=== PATIENT | male | born 1955 | race Caucasian/White ===

== ENCOUNTER 2018-07-19 08:52 | Observation (INO) | payer BC ==
--- NOTE | 2018-07-19 09:33 | ED ---
HPI Chest Pain - HPI Summary HPI Summary: This patient is a 62 year old M presenting to [facility] accompanied by a woman with a chief complaint of intermittent midsternal chest tightness since 3 days ago. The patient rates the pain 2/10 in severity. Patient reports epigastric discomfort and right sided facial droop. Patient denies abd pain, fevers, chills , N/V, or SOB. The patient reports that he has chronic GI upset. PMHX HTN, diabetes. SHX occasional EtOH. No SHx tobacco use or recreational drug use. Vitals in the room: HR 66 bpm, BP 153/82. - History of Current Complaint Chief Complaint: EDNeurologicalDeficit Time Seen by Provider: 07/19/18 08:58 Hx Obtained From: Patient Onset/Duration: Started Days Ago - 3 Timing: Intermittent Current Severity: Mild Pain Intensity: 2 Pain Scale Used: 0-10 Numeric Chest Pain Location: Mid Sternal Character: Tightness Associated Signs and Symptoms: Positive: Chest Pain. Negative: Shortness of Breath, Fever, Chills, Nausea, Abdominal Pain, Vomiting - Allergy/Home Medications Allergies/Adverse Reactions: Allergies Allergy/AdvReac Type Severity Reaction Status Date / Time No Known Allergies Allergy Verified 04/23/12 10:05 Home Medications: Home Medications Amlodipine Besylate [Amlodipine 2.5 mg tab] 1 tab PO DAILY 07/19/18 [History Confirmed 07/19/18] Naproxen Sodium [Aleve] 220 mg PO DAILY 07/19/18 [History Confirmed 07/19/18] PMH/Surg Hx/FS Hx/Imm Hx Endocrine/Hematology History: Reports: Hx Diabetes - TYPE 2 Denies: Hx Sickle Cell Disease Cardiovascular History: Reports: Hx Hypertension Denies: Hx Pacemaker/ICD, Other Cardiovascular Problems/Disorders Respiratory History: Denies: Other Respiratory Problems/Disorders GI History: Denies: Other GI Disorders History: Reports: Hx Kidney Stones - 2 YEARS AGO Denies: Hx Dialysis, Hx Renal Disease Musculoskeletal History: Reports: Hx Arthritis - ARTHRITIS IN KNEES, Hx Back Problems Denies: Other Musculoskeletal History Sensory History: Denies: Hx Contacts or Glasses, Hx Hearing Aid Opthamlomology History: Denies: Hx Contacts or Glasses Neurological History: Denies: Other Neuro Impairments/Disorders Psychiatric History: Denies: Hx Panic Disorder - Surgical History Surgery Procedure, Year, and Place: tonsillectomy as a child; appendectomy as a child; disk surgery between L3-4 age 14 , right knee arthroscopy 02-07-12 Hx Anesthesia Reactions: No Infectious Disease History: No Infectious Disease History: Denies: Hx Clostridium Difficile, Hx Hepatitis, Hx Human Immunodeficiency Virus (HIV), Hx Shingles, Hx Tuberculosis, Traveled Outside the [place] in Last 30 Days - Family History Known Family History: Positive: Hypertension - Social History Alcohol Use: Daily Substance Use Type: Reports: None Smoking Status (MU): Former Smoker Review of Systems Negative: Fever, Chills Positive: Chest Pain Negative: Shortness Of Breath Positive: Other - GI discomfort. Negative: Abdominal Pain, Vomiting, Nausea Neurological: Other - right sided facial droop All Other Systems Reviewed And Are Negative: Yes Physical Exam - Summary Physical Exam Summary: GENERAL: Patient is a well-developed and nourished male who is lying comfortable in the stretcher. Patient is not in any acute respiratory distress. HEAD AND FACE: Normocephalic EYES: PERRLA, EOMI x 2. EARS: Hearing grossly intact. MOUTH: Oropharynx within normal limits. NECK: Supple, trachea is midline, no adenopathy, no JVD, no carotid bruit. CHEST: Symmetric, no tenderness at palpation LUNGS: Clear to auscultation bilaterally. No wheezing or crackles. CVS: Regular rate and rhythm, S1 and S2 present, no murmurs or gallops appreciated. ABDOMEN: Soft, non-tender. Bowel sounds are normal. No abdominal abnormal pulsations. EXTREMITIES: Full ROM in all major joints, no edema, no cyanosis or clubbing. NEURO: Alert and oriented x 3. No acute neurological deficits. Speech is normal and follows commands. Cranial nerves intact, no dysmetria. SKIN: Dry and warm GCS: 15 Triage Information Reviewed: Yes Vital Signs On Initial Exam: Initial Vitals Temp Pulse Resp BP Pulse Ox 98.6 F 67 16 156/82 98 07/19/18 08:58 07/19/18 08:58 07/19/18 08:58 07/19/18 08:58 07/19/18 08:58 Vital Signs Reviewed: Yes Diagnostics - Vital Signs Vital Signs Temp Pulse Resp BP Pulse Ox 07/19/18 09:07 22 07/19/18 08:58 98.6 F 67 16 156/82 98 - Laboratory Result Diagrams: 07/19/18 09:49 07/19/18 09:49 Lab Statement: Any lab studies that have been ordered have been reviewed, and results considered in the medical decision making process. - Radiology CXR Radiology Interpretation Completed By: Radiologist Summary of Radiographic Findings: NO EVIDENCE FOR ACUTE DISEASE. ED physician has reviewed this report - CT Brain CT Interpretation Completed By: Radiologist Summary of CT Findings: NO EVIDENCE FOR ACUTE INTRACRANIAL ABNORMALITY. ED physician has reviewed this report - EKG 08:57 Cardiac Rate: NL - 65 bpm EKG Rhythm: Sinus Rhythm Summary of EKG Findings: No ischemic changes Chest Pain Course/Dx - Course Course Of Treatment: This patient is a 62 year old M presenting to [facility] accompanied by a woman with a chief complaint of intermittent midsternal chest tightness since 3 days ago. The patient rates the pain 2/10 in severity. Patient reports epigastric discomfort and right sided facial droop. Patient denies abd pain, fevers, chills, N/V, or SOB. An EKG reveals 65 bpm, no ischemic changes. CXR reveals, per radiologist, NO EVIDENCE FOR ACUTE DISEASE. Brain CT reveals, per radiologist, NO EVIDENCE FOR ACUTE INTRACRANIAL ABNORMALITY. ED physician has reviewed this radiology report. Bloodwork/UA obtained. We discussed patient care with Dr. Mandujano, hospitalist, and they recommended admission. - Diagnoses Provider Diagnoses: Chest pain - Provider Notifications Discussed Care Of Patient With: Ryan Mandujano Time Discussed With Above Provider: 11:20 Instructed by Provider To: Admit As Inpatient Discharge - Sign-Out/Discharge Documenting (check all that apply): Patient Departure - admission Patient Received Moderate/Deep Sedation with Procedure: No - Discharge Plan Condition: Fair Disposition: ADMITTED TO [facility] - Billing Disposition and Condition Condition: FAIR Disposition: Admitted to [facility] - Attestation Statements Document Initiated by Scribe: Yes Documenting Scribe: Jme Carr Provider For Whom Scribe is Documenting (Include Credential): Suzanne Dong MD Scribe Attestation: Jem Woodward scribed for Suzanne Dong MD on 07/19/18 at 1514. Scribe Documentation Reviewed: Yes Provider Attestation: The documentation as recorded by the Jem jasso accurately reflects the service I personally performed and the decisions made by me, Suzanne Dong MD Status of Scribe Document: Viewed
[2018-07-19 09:57] LABS: ABS Basophils 0 10^3/ul (0-0.2); ABS Eosinophils 0.2 10^3/ul (0-0.6); ABS Lymphocytes 1.3 10^3/ul (1.0-4.8); ABS Monocytes 0.5 10^3/ul (0-0.8); ABS Neutrophils 2.2 10^3/ul (1.5-7.7); ABS Nucleated RBC 0 10^3/ul; Eosinophil % 3.8 %; Hematocrit 45 % (36-46); Hemoglobin 15.2 g/dL (14.0-18.0); Lymphocyte % 30.7 %; Mean Corpuscular HGB Conc 34 g/dL (31-36); Mean Corpuscular Hemoglobin 31 pg (27-31); Mean Corpuscular Volume 92 fL (80-94); Mean Platelet Volume 7.2 fL (7.4-10.4); Nucleated Red Blood Cells % 0; Platelet Count 192 10^3/uL (150-450); Red Blood Count 4.91 10^6 /uL (4.18-5.48); Red Cell Distribution Width 15 % (10.5-15); White Blood Count 4.2 10^3/uL (3.5-10.8)
[2018-07-19 10:09] LABS: Activated Partial Thrombo Time 30.5 seconds (26.0-36.3); INR 0.91 (0.77-1.02)
[2018-07-19 10:17] LABS: Albumin/Globulin Ratio 1.4 (1-3); BUN/Creatinine Ratio 22.5 (8-20); Calcium 9.6 mg/dL (8.6-10.3); EGFR African American 118.1 (>60); EGFR Non-African American 97.6 (>60); Globulin 2.8 g/dL (2-4); Magnesium 1.9 mg/dL (1.9-2.7); Potassium 4.6 mmol/L (3.5-5.0); Total Bilirubin 0.4 mg/dL (0.2-1.0); Total Protein 6.8 g/dL (6.4-8.9)
[2018-07-19 10:21] LABS: CKMB ng/mL 3.3 ng/mL (0.6-6.3)
[2018-07-19] MEDS ORDERED: Clopidogrel TAB* 75 MG PO ONE (12:20)
[2018-07-19] MEDS ORDERED: Dextrose 50% Syringe 50 ML* 25 GM/50 ML SYRINGE IV PUSH PRN (12:21)
[2018-07-19] MEDS ORDERED: Iodixanol* (CONTRAST) 320 MG/ML 100 ML SDV IV ONE (12:27)
[2018-07-19] MEDS ORDERED: Lidocaine 2% VISCOUS* 15 ML UDC PO ONE (12:44)
[2018-07-19 12:57] LABS: Urine Appearance Cloudy; Urine Bilirubin Negative (Negative); Urine Blood Negative (Negative); Urine Color Yellow; Urine Glucose Negative (Negative); Urine Ketones Negative (Negative); Urine Nitrite Negative (Negative); Urine Protein Negative (Negative); Urine Specific Gravity 1.016 (1.010-1.030); Urine Urobilinogen Negative (Negative)
[2018-07-19] MEDS: Heparin VIAL(*) 5000 UNITS/ML VIAL (FIVE THOUSAND) SUBCUT SCH ×2 (15:10→20:18)
--- NOTE | 2018-07-19 16:41 | CONS ---
NEUROLOGY CONSULTATION: DATE OF CONSULT: 07/19/18 LOCATION: He is an inpatient in room 445. REFERRING PROVIDER: Sherley Laureano NP. CHIEF COMPLAINT: Intermittent right facial numbness or weakness. 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 He also reports that for about 1 week he has had intermittent sense of something wrong with the right corner of his mouth. At times, it feels like it is drooping or perhaps numb, but he is not really sure how to describe it. There is no pain and it lasts anywhere from 10 seconds to at most a minute. He has looked in the mirror and he has not seen any asymmetries. It does not affect his speech. His has not noticed any facial asymmetries. He has not noticed any numbness or weakness in his limbs other than chronic right footdrop attributed to prior lumbar disk disease and subsequent surgeries. He does have a history of diabetes, but he denies numbness in his hands or feet otherwise. He has not noticed any difficulty walking. There is no prior history of transient ischemic attack or stroke. He has had a couple of concussive head injuries, but none requiring medical intervention. There is no history of epilepsy. PAST MEDICAL HISTORY: Notable for adult-onset diabetes, prior lumbar surgeries with chronic right footdrop, septic arthritis of the right knee and subsequent surgeries, tonsillectomy. MEDICATIONS: At home consist of: 1. Aspirin 81 mg p.o. daily. 2. Amlodipine 2.5 mg p.o. daily. 3. Metformin 1000 mg p.o. daily. 4. Glipizide 5 mg p.o. daily. 5. Naproxen 220 mg p.o. daily. Medications here in the hospital also include: 1. Sliding scale insulin. 2. Plavix 75 mg was started today. 3. Also Protonix 40 mg p.o. daily. ALLERGIES: He does not have any drug allergies. SOCIAL HISTORY: He is a nonsmoker. According to computer records, he drinks a couple of beers a day. REVIEW OF SYSTEMS: Negative for headache, jaw problems, dental issues, difficulty with speech, difficulty with swallowing, recent shortness of breath, recent fevers or infections. He banged the apex of his head on a frame to his plough earlier this winter and lacerated it. He did not lose consciousness. He has chronic back pain. There is no history of heart disease. PHYSICAL EXAM: He is obese. Temperature 97.8, blood pressure 146/76, heart rates in the 60s and regular. Respiratory rate is 16 and oxygen saturation is 99% on room air. Neck is supple. Heart tones are normal. There are no cervical bruits. Oral mucosa is moist and atraumatic. Lungs are clear bilaterally. Neurological Exam: Pupils react equally from 3.5 down to 2 mm. Eye movements are normal. Funduscopic exam is normal bilaterally. Visual sepulveda are full to confrontation. There is no ptosis. Upper and lower facial musculature is intact and symmetric. Palate and tongue appear normal and palate rises symmetrically. Tongue protrudes in the midline. Speech is clear without dysarthria. Facial sensation to pin is variable without any fixed asymmetries or deficits. Sensation in the limbs is intact to light touch, vibration, and pin discrimination symmetrically in upper and lower extremities. On motor exam, there is atrophy and fasciculations in the left first dorsal interosseous. He has grade 4 to 4+ weakness in that muscle and otherwise normal strength in the upper extremities proximally and distally. In the lower extremities, he has normal proximal strength and distal strength in the left lower extremity and normal proximal strength in the right lower extremity. He has lessened antigravity right ankle dorsiflexor weakness. Reflexes are trace diffusely. Plantar is mute on the right and flexor on the left. Pcym-zv-setr maneuver is normal bilaterally. There is no rest, sustention , or action tremor. Jwzsvq-eu-butx maneuver is normal bilaterally. Finger taps are normal bilaterally. Gait and station are normal. There is no ataxia. He is alert and oriented and a good detailed historian. Memory is intact and language is fluent. He has adequate attention, concentration, and fund of knowledge. DIAGNOSTIC STUDIES/LAB DATA: Laboratory data includes a CT scan of the brain, which I reviewed the images and the interpretation. Interpretation is a normal noncontrast brain CT. CT angiogram of the neck and brain is reviewed as well. There is some calcification in the carotid bulbs bilaterally, but no significant intracranial or extracranial stenosis. I reviewed the images as well as the report. EKG revealed sinus rhythm and no abnormalities. Other laboratory data is notable for a normal chemistry profile other than a glucose of 111 and the SSD-do-nhtaukdocf ratio is borderline elevated at 22.5. Troponin is 0 and CK-MB fraction is 3.3, within normal limits. Liver enzymes are normal. Urinalysis today is unremarkable. Urine glucose is negative. IMPRESSION AND PLAN: Impression is that of some subjective sensory symptoms on the right side of the face, which he says also occurred at least once in the left side. Transient ischemic attack is certainly in the differential, but I would not expect it to alternate from [id number]. Currently, he has a normal neurological exam other than chronic findings consistent with an old right L5 radiculopathy and probable ulnar neuropathy at the left elbow. An MRI scan of the brain has been ordered. I spoke with Sherley Laureano NP, earlier and recommended adding Plavix to his aspirin which has been done. Fasting lipid profile is pending for tomorrow. He is also being evaluated for possible coronary artery disease with his chest pressure presentation. I will continue to follow him along with you. [id number]/[facility] #: [id number] JANET
[2018-07-19] MEDS: Insulin LISPRO* 1 UNITS UNIT SUBCUT SCH ×2 (17:17→19:56)
--- NOTE | 2018-07-19 17:22 | HP ---
HISTORY AND PHYSICAL: DATE OF ADMISSION: 07/19/18 PROVIDER: Archie Stokes NP ATTENDING PHYSICIAN: Dr. Mandujano * (report dictated by Archie Stokes NP) PRIMARY CARE PROVIDER: Dr. Sreekanth Siu, [facility]. CHIEF COMPLAINT: Right-sided facial droop, numbness, and chest discomfort. HISTORY OF PRESENT ILLNESS: Mr. Joyner is a 62-year-old male with a past medical history of obesity, rvp-hneyjdc-vjbevkeak type 2 diabetes, GERD, who presents to the emergency department today with report of 4-days of not feeling well and concerned for experiencing numbness at the right side of his mouth and which he thought he was having right-sided facial droop, which he states that it feels like this, even though on assessment, there is no facial droop. He described that as "twinges" of strange sensation and possibly numbness. He reports this has happened every day since , intermittently 3 to 4 times a day, mostly on the right side, reporting it happened just a few times on the left side in the last couple of days. He denies any other neurological deficit and has ever experienced before in the past. No history of TIA or stroke in the past. As well, he reports he noted some light chest tightness on as well as Friday and yesterday. He reports today he noted he had discomfort from above his belly button to his mid sternum and reported that it was tightness, not pain. He states it feels like a band of tightness. He also reports yesterday morning he noted he had significant acid reflux, which he has intermittently and is baseline. He reports that a few months ago, he was put on "some medication" for acid reflux for 2 weeks trial and since he does not have reflux on a regular basis, he was not sure if it helped or not and stop taking the mediation. 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 He does report that these episode of right corner of mouth numbness/twinges and sensation of right facial droop as well as chest discomfort did happen with excretion. The patient denies ever having CTA or ultrasound of carotids or an MRI as well as has no history of cardiac stress test. No history of FL. He takes Aleve daily for his back pain. No history of gastric ulcers in the past. Also takes daily aspirin. PAST MEDICAL HISTORY: 1. Xdv-hldtxks-iapdjknug type 2 diabetes. 2. GERD. 3. Obesity. 4. Hypertension. 5. History of bacteremia in 2012 and 2013 from a right septic knee. PAST SURGICAL HISTORY: Appendectomy, tonsillectomy, disk surgery at age 14. HOME MEDICATIONS: 1. Aleve 220 mg p.o. daily. 2. Amlodipine 2.5 mg p.o. daily. 3. Metformin 1000 mg p.o. daily. 4. Glipizide 20 mg p.o. daily. ALLERGIES: No known allergies. FAMILY HISTORY: His father has a history of diabetes. His mother has a history of coronary artery disease. He has 2 sisters and a brother with coronary artery disease. 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 He lives at home with his who is his healthcare proxy. He reports he drinks 2 to 3 beers 1 to 2 times a week. REVIEW OF SYSTEMS: A 14-point review of systems was performed. All the pertinent positives and negatives are mentioned in the history of present illness. Otherwise are negative. PHYSICAL EXAMINATION GENERAL APPEARANCE: A 62-year-old male, alert and oriented x3, sitting in the emergency department stretcher, in no acute distress. VITAL SIGNS: Temperature 98.6, heart rate 61, respirations 19, O2 sat 97% on room air, blood pressure 139/83. HEENT: Head is normocephalic, atraumatic. Pupils equal and reactive to light. Oropharynx is clear. Moist mucous membranes. Good dentition. NECK: Supple. No JVD noted. LUNGS: Clear to auscultation bilaterally. Good aeration throughout. CARDIAC: S1, S2, regular rate and rhythm. No murmurs, rubs, or gallops appreciated. ABDOMEN: Slightly obese, soft, nontender, nondistended. Normal bowel sounds throughout. EXTREMITIES: No clubbing, cyanosis, or edema. NEUROLOGIC: Alert and oriented x3. Cranial nerves II through XII are grossly intact. No focal deficits noted. LABORATORY DATA/DIAGNOSTIC STUDIES: Sodium 137, potassium 4.6, chloride 106, carbon dioxide 27, anion gap 4, BUN 18, creatinine 0.80, glucose 111, lactic acid 1.7, calcium 9.6, magnesium 1.9, total bilirubin 0.40, AST 17, ALT 20, alkaline phosphatase 56. CK-MB 3.3. Troponin 0.00, BNP 15, total protein 6.8, albumin is 4.0, INR 0.91. WBC 4.2, RBC 4.91, HGB 15.2, HCT 45, MCV 92, MCH 31, MCHC 34, platelet count 192. Brain CT, impression: No evidence for acute intracranial pathology. EKG, sinus rhythm with a rate of 65 with no acute ischemic changes noted and no changes noted form prior EKG in 2011. Chest x-ray, impression: "No evidence for acute disease." ASSESSMENT AND PLAN: Mr. Joyner is a 62-year-old male with a past medical history of obesity, cuo-qgahesr-tavpblqdo type 2 diabetes, gastroesophageal reflux disease, and hypertension. He presents to the emergency department today with report of 4 days of not feeling well with intermittent right-sided mouth numbness/twinges and which he thought was right-sided facial droop and report of chest tightness, who will be admitted to the hospitalist service for transient ischemic attack workup. We will also rule out acute coronary syndrome. 1. Possible Transient ischemic attack. The patient's CT of the brain was negative. He will be admitted to the Telemetry Unit and will undergo a CTA of the head and neck as well as an MRI of the brain without contrast. I spoke with neurologist, Dr. Flowers, who will see the patient in consultation. He recommended the patient be given Plavix 75 mg x1 now and started on this daily. He will continue on his aspirin. Neuro checks q.4 hours. Fasting lipid profile in the morning. Transthoracic echocardiogram with a bubble study. The patient has no neurological deficits on my examination. It is hard for him to describe his symptoms of right corner of his mouth twinges and numbness that travel down from corner of the mouth to the base of chin as well as he does report he has experienced this few times on the left side, mostly on the right. 2. Rule out acute coronary syndrome. EKG shows no acute changes. His initial troponin is 0.00. I suspect this is secondary to gastroesophageal reflux disease, however, he is at high risk due to his past medical history. However, his BRAEDEN score is 2 and his HEART score is 3. If he rules out with his troponins and have EKG changes, he could have an outpatient stress test if he rules out for ACS. Trend troponins q.3 hours. 3. Gastroesophageal reflux disease. The patient reports intermittent reflux at his baseline. I am going to give him a dose of GI cocktail x1 to see if this helps with his symptoms. He does take aspirin and Aleve on a daily basis and could have some gastritis. I did discuss with the patient that he should see a caramel cutter helper and most likely go under an endoscopy. I will start the patient on a PPI. I do think he should be discharged home on this and followup with his primary. 4. Hypertension, appears to be well controlled. Continue amlodipine 2.5 mg p.o. daily. 5. Yjd-hsvcrtp-adojjrwvv type 2 diabetes. Hold oral diabetic medications. Start fingerstick blood glucose a.c. and h.s. with lispro sliding scale. We will add on hemoglobin A1c. 6. DVT prophylaxis: Heparin subcu. 7. Code status: Full code. 8. Hospital status: Observation. TIME SPENT: Approximately 60 minutes was spent on this admission and this case was discussed with attending physician, Dr. Dalton Mandujano as well as neurologist , Dr. Flowers. ARCHIE STOKES, [place] [id number]/[facility] #: [id number] JANET
[2018-07-19] MEDS ORDERED: Pantoprazole TAB * 40 MG TAB PO ONE (20:00)
[2018-07-20] MEDS: Heparin VIAL(*) 5000 UNITS/ML VIAL (FIVE THOUSAND) SUBCUT SCH ×2 (05:49→14:07)
[2018-07-20 06:23] LABS: ABS Basophils 0 10^3/ul (0-0.2); ABS Eosinophils 0.2 10^3/ul (0-0.6); ABS Lymphocytes 1.5 10^3/ul (1.0-4.8); ABS Monocytes 0.5 10^3/ul (0-0.8); ABS Neutrophils 2.3 10^3/ul (1.5-7.7); ABS Nucleated RBC 0 10^3/ul; Hematocrit 46 % (36-46); Hemoglobin 15.3 g/dL (14.0-18.0); Lymphocyte % 34.3 %; Mean Corpuscular HGB Conc 33 g/dL (31-36); Mean Corpuscular Hemoglobin 31 pg (27-31); Mean Corpuscular Volume 92 fL (80-94); Mean Platelet Volume 7.4 fL (7.4-10.4); Nucleated Red Blood Cells % 0.1; Platelet Count 188 10^3/uL (150-450); Red Blood Count 4.99 10^6 /uL (4.18-5.48); Red Cell Distribution Width 15 % (10.5-15); White Blood Count 4.5 10^3/uL (3.5-10.8)
[2018-07-20 06:38] LABS: BUN/Creatinine Ratio 19.5 (8-20); Calcium 9.3 mg/dL (8.6-10.3); EGFR African American 107.2 (>60); EGFR Non-African American 88.6 (>60); HDL Cholesterol 45.1 mg/dL; Potassium 4.4 mmol/L (3.5-5.0)
[2018-07-20] MEDS: Insulin LISPRO* 1 UNITS UNIT SUBCUT SCH ×2 (08:47→11:38)
[2018-07-20] MEDS ORDERED: Clopidogrel TAB* 75 MG PO SCH (09:00)
[2018-07-20] MEDS ORDERED: amLODIPine TAB* 5 MG PO SCH (09:00)
[2018-07-20] MEDS ORDERED: Pantoprazole TAB * 40 MG TAB PO SCH (09:00)
[2018-07-20 09:51] LABS: Folate 8.59 ng/mL (>3.99)
--- NOTE | 2018-07-20 15:36 | ECHO ---
Patient: ADRIÁN YOUSIF [facility] Rec#: [id number] : 1955 Date: 07/20/2018 Age: 62y Height: 178 cm / 70.1 in Weight: 120 kg / 264.5 lbs Sex: M BSA: 2.35 Room#: [facility] Admit Date#: 07/19/2018 Type: Inpatient Referring: BILLY STOKES Reading: Bryan Rod DO Elementary Educator: Yoselin Tsai RDCS,RDMS Transthoracic Echocardiogram Indication: TIA BP: 131/76 HR: 75 Rhythm: NSR Findings History: HTN, DM Technical Comments: The study quality is fair. Left Ventricle: The left ventricular chamber size is normal. Mild concentric left ventricular hypertrophy is observed. Global left ventricular wall motion and contractility are within normal limits. There is normal left ventricular systolic function. The estimated ejection fraction is 60-65%. There is an E to A reversal in the mitral valve flow pattern suggestive of diastolic dysfunction. Left Atrium: The left atrial chamber size is normal. Right Ventricle: The right ventricular chamber size and systolic function are within normal limits. Right Atrium: The right atrial cavity size is normal. The bubble study is negative. A patent foramen ovale is not demonstrated with color Doppler and agitated contrast. Aortic Valve: The aortic valve leaflets are mildly thickened. There is aortic annular calcification.that is mild There is a trace of aortic regurgitation. There is no evidence of aortic stenosis. Mitral Valve: The mitral valve leaflets appear normal. There is no evidence of mitral regurgitation. There is no evidence of mitral stenosis. Tricuspid Valve: The tricuspid valve leaflets are normal. There is trace tricuspid regurgitation. Unable to estimate the right ventricular systolic pressure. Pulmonic Valve: The pulmonic valve structure is not well visualized. There is no evidence of pulmonic regurgitation. Pericardium: There is no significant pericardial effusion. Aorta: There is mild dilatation of the ascending aorta. There is no dilatation of the aortic arch. There is mild dilatation of the aortic root. Pulmonary Artery: The main pulmonary artery is not well visualized. Venous: The inferior vena cava is not visualized. Contrast: Intravenous agitated saline contrast was used to assess intracardiac shunting. Images 67 and 68. Conclusions The left ventricular chamber size is normal. Mild concentric left ventricular hypertrophy is observed. Global left ventricular wall motion and contractility are within normal limits. There is normal left ventricular systolic function. The estimated ejection fraction is 60-65%. The left atrial chamber size is normal. The right ventricular chamber size and systolic function are within normal limits. The bubble study is negative. No significant valvular abnormalities noted There is mild dilatation of the aortic root. There is mild dilatation of the ascending aorta. None prior for comparison at time of interpretation Measurements Name Value Normal Range RVIDd (AP) 2D 3.5 cm (0.9 - 2.6) RAd ISD 4CH 5.2 cm (3.4 - 4.9) RA (A4C)W 2.8 cm (2.9 - 4.6) IVSd (2D) 1.3 cm (0.6 - 1) LVPWd (2D) 1.3 cm (0.6 - 1) LVIDd (2D) 4.5 cm (3.6 - 5.4) LVIDs (2D) 2.8 cm - LV FS (2D) 37 % (25 - 45) Aortic Annulus 2.5 cm (1.4 - 2.6) Ao root diameter (2D) 3.7 cm (2.1 - 3.5) Ascending Ao 3.8 cm (2.1 - 3.4) Aortic arch 3.3 cm (1.8 - 3.4) LA dimension (AP) 2D 3.6 cm (2.3 - 3.8) LAd ISD 4CH 4.7 cm (2.9 - 5.3) LA ISD 4CH W 4.1 cm (2.5 - 4.5) Name Value Normal Range LA ESV SP 4CH (A/L) 20.5 ml - Name Value Normal Range MV E-wave Vmax 0.6 m/sec - MV deceleration time 317 msec - MV A-wave Vmax 0.8 m/sec - MV E:A ratio 0.8 ratio - P. vein S-wave Vmax 0.7 m/sec - P. vein D-wave Vmax 0.6 m/sec - P. vein S:D Vmax ratio 1.2 ratio - P. vein A-wave duration 148 msec - LV septal e' Vmax 0.06 m/sec - LV lateral e' Vmax 0.06 m/sec - LV E:e' septal ratio 10 ratio - LV E:e' lateral ratio 10 ratio - Name Value Normal Range AV Vmax 1.4 m/sec - AV VTI 26 cm - AV peak gradient 8 mmHg - AV mean gradient 4 mmHg - LVOT Vmax 1.1 m/sec - LVOT VTI 23 cm - LVOT peak gradient 5 mmHg - LVOT mean gradient 3 mmHg - FLORENCE Vmax 0.6 m/sec - Name Value Normal Range PV Vmax 0.7 m/sec - PV peak gradient 2 mmHg -
[2018-07-20 15:50] VITALS: BP 138/76
--- NOTE | 2018-07-21 01:26 | DS ---
CC: Dr. Siu * DISCHARGE SUMMARY: DATE OF ADMISSION: 07/19/18 DATE OF DISCHARGE: 07/20/18 PROVIDER: DIANA Walker ATTENDING PHYSICIAN: Dr. Mandujano * (dictated by DIANA Walker). PRIMARY CARE PROVIDER: Dr. Siu. PRIMARY DIAGNOSES: 1. Chest pain, noncardiac. 2. Facial numbness, possible transient ischemic attack. SECONDARY DIAGNOSES: 1. Gastroesophageal reflux disease. 2. Type 2 diabetes mellitus. 3. Obesity. 4. Hypertension. STUDIES: Brain CT on 07/19/18, impression: "No evidence for acute intracranial abnormality." Chest x-ray on 07/19/18, impression: "No evidence for acute disease." Head CTA on 07/19/18, impression: 1. "No evidence for hemodynamically significant carotid stenosis. 2. No evidence for large vessel intracranial thrombus." Transthoracic echo on 07/19/18, conclusions: "The left ventricular chamber size is normal. Normal concentric left ventricular hypertrophy is observed. The global left ventricular wall motion and contractility are within normal limits. There is normal left ventricular systolic function. The estimated ejection fraction is 60% to 65%. The left atrial chamber size is normal. The left ventricular chamber size and systolic function are within normal limits. The bubble study is negative. No significant valvular abnormalities noted. There is mild dilation of the aortic root. There is mild dilation of the ascending aorta." Brain MRI on 07/20/18, impression: "Unremarkable MRI of the brain. No restricted diffusion to suggest infarct." PERTINENT LAB DATA: Triglycerides 171, cholesterol 163, LDL 84, HDL 45.1. Vitamin B12 of 221, folate 8.59, calcium 9.3. DISCHARGE MEDICATIONS: 1. Plavix 75 mg p.o. daily. 2. Pantoprazole 40 mg p.o. daily. Continued Home Medications: 1. Metformin 1000 mg p.o. daily. 2. Glipizide 5 mg p.o. daily. 3. Amlodipine 2.5 mg p.o. daily. HISTORY OF PRESENT ILLNESS/HOSPITAL COURSE: Sincere Joyner is a 62-year-old white male with past medical history significant for hypertension, diabetes mellitus type 2, GERD, who presented to the emergency department with right- sided facial numbness to the right of his mouth intermittently for 4 days. He does note that occasionally this has occurred on the left side. These periods of numbness only last for several seconds. He felt like there was some right- sided facial weakness, but when he looked in the mirror and asked his there was no facial droop reported. Additionally, he noticed some chest discomfort for several days leading up to presentation, between his midsternum and belly button. He frequently reported this was not a true pain. He did note that he has been on medication for acid reflux in the past, but was unsure of what. During his hospital course, he was seen by neurologist, Dr. Flowers, who suggested starting the patient on Plavix. He explained that this is not a very convincing TIA, but given his risk factors, cannot totally be ruled out. He has been ruled out for a stroke and there are no cardiogenic causes of a possible TIA. On date of discharge, the patient does mention that the first day that these symptoms started he was working on his dump truck in the garage, using multiple strong chemicals to clean asphalt off of the vehicle. He was doing so in a poorly ventilated area (his garage). On date of discharge, the patient's chest discomfort is resolved. He has not experienced facial numbness or weakness since admission. Additionally, denies nausea, vomiting, visual changes, headaches, chest palpitations. During his hospitalization, B12 and B9 deficiencies were ruled out in addition to hypocalcemia as the cause of the facial numbness. During his stay, for treatment of his likely GERD, pantoprazole was started inpatient. For treatment of his hypertension, his home amlodipine was continued. For treatment of his diabetes, his home oral medications were held and he was initiated on an insulin sliding scale. His hemoglobin A1c was found to be 6.1. REVIEW OF SYSTEMS: An 11-point review of systems was completed and all pertinent positives and negatives are in the HPI. All other systems are negative. PHYSICAL EXAMINATION: General: Obese white male, lying comfortably on hospital bed, appearing in no acute distress, at bedside. Head: Normocephalic, atraumatic. Eyes: PERRL, EOMI. Sclerae anicteric. ENT: Mucous membranes moist. Neck: Supple and without JVD. Cardio: Regular rate and rhythm without murmurs, rubs, or gallops. Respiratory: Lungs are clear to auscultation throughout. Chest: Expansion is symmetrical with respirations. Abdomen: Soft, nontender, nondistended. Extremities: Without clubbing or edema. Neuro: Alert and oriented x3. No focal neurological deficits. Sensation is intact and equal bilaterally throughout. DISCHARGE PLAN: Diet: The patient is to return to his diet of a carb- consistent diet for diabetes. Activity: The patient is return to his normal activity as tolerated. The patient is to begin taking Plavix daily and he can discuss with his PCP the period of time in which to continue this, although the recommendation is a minimum of 1 year. As previously mentioned, the suspicion for a true TIA is low and given this new information on date of discharge that the patient's inhalation of strong chemicals is an alternate explanation for the numbness in his face. The patient is chest pain-free at discharge and the cause of his chest pain is likely related to GERD. The patient has been prescribed pantoprazole. It is recommended that his symptoms be reevaluated in 8 weeks. If his symptoms are persistent, it is recommended that an outpatient endoscopy be performed. The patient was advised to discontinue taking Aleve in the setting of taking Plavix daily. For treatment of his hypertension, he is to continue his home medication of amlodipine. For treatment of his diabetes, he is to continue his metformin and glipizide. CONDITION ON DISCHARGE: Stable. TIME SPENT: Approximately 50 minutes was spent on this discharge; approximately half of the time was spent at the bedside. DIANA WALKER [id number]/[facility] #: [id number] [facility]ERYJuaquin
== END 2018-07-20 17:35 | disposition home or self-care (01) ==
LOC: ED 08:52 → MEDTELE 12:52
PROVIDERS: ADMIT Student in an Organized Health Care Education/Training Program; ATTEND Student in an Organized Health Care Education/Training Program
DX: R07.9 Chest pain, unspecified (principal); R20.0 Anesthesia of skin; K21.9 Gastro-esophageal reflux disease without esophagitis; E11.9 Type 2 diabetes mellitus without complications; E66.9 Obesity, unspecified; I10 Essential (primary) hypertension; Z87.891 Personal history of nicotine dependence; Z79.82 Long term (current) use of aspirin
CPT/HCPCS: 36415; 70450; 70496; 70498; 70551; 71045; 80048; 80053; 80061; 81003; 82553; 82607; 82746; 83036; 83605; 83735; 83880; 84484; 85025; 85379; 85610; 85730; 93005; 93306; 96372; 99284; A9270-GY; G0378; J1644; Q9967

== ENCOUNTER 2022-01-31 07:30 | Observation (INO) ==
[~2022-01-31 07:30] MED LIST: Buffered Lidocaine 1% SYRIN 1 ml INTRADERM ONE; Lactated Ringers 1000 ml BAG 1,000 ML IV SCH
[2022-01-31] MEDS ORDERED: Lidocaine 2% PF 5 ML VIAL ONE (08:15)
[2022-01-31] MEDS ORDERED: Ketamine HCL 50 mg/ml 10 ml VIAL (500 MG) ONE ×2 (08:15→09:48)
[2022-01-31] MEDS ORDERED: Propofol 10 MG/ML 20 ML BTL ONE (08:15)
[2022-01-31] MEDS ORDERED: ceFAZolin 2 GM in NS PREMIX 2 GM/100 ML BAG IVPB ONE (08:40)
[2022-01-31] MEDS ORDERED: Midazolam 2 mg/2 ml VIAL 1 mg/ml 2 ml VIAL (2 mg) ONE (09:48)
[2022-01-31] MEDS ORDERED: fentaNYL 250 mcg/5 ml 50 MCG/ML 5 ml VIAL (250 MCG) ONE (09:48)
[2022-01-31] MEDS ORDERED: Rocuronium 50 mg VIAL 10 mg/ml 5 ml VIAL (50 mg) ONE ×2 (09:49→11:45)
[2022-01-31] MEDS ORDERED: Acetaminophen IV 1 GM/100ML 1,000 MG/100 ML BAG IV PRN (10:05)
[2022-01-31] MEDS ORDERED: HYDROmorphone 1 MG/1 ML SYRINGE IV PRN (10:05)
[2022-01-31] MEDS ORDERED: Ondansetron 4 mg VIAL 2 MG/ML 2 ml VIAL IV PRN ×2 (10:05→13:42)
[2022-01-31] MEDS ORDERED: Naloxone 0.4 mg VIAL 0.4 mg/ml 1 ml VIAL IV PRN (10:05)
[2022-01-31] MEDS ORDERED: fentaNYL 100 mcg/2 ml 50 MCG/ML VIAL IV PRN (10:05)
[2022-01-31] MEDS ORDERED: Ondansetron 4 mg VIAL 2 MG/ML 2 ml VIAL ONE (11:25)
[2022-01-31] MEDS ORDERED: Phenylephrine 40 mcg/mL 10mL (400mcg) SYRINGE ONE (11:31)
[2022-01-31] MEDS ORDERED: fentaNYL 100 mcg/2 ml 50 MCG/ML VIAL ONE (11:51)
[2022-01-31] MEDS ORDERED: Esmolol 10 MG/ML 10 ML (100 mg) ONE (11:54)
[2022-01-31] MEDS ORDERED: ROPIVACAINE 5 MG/ML 30 ML BTL (0.5%) ONE (13:27)
[2022-01-31] MEDS ORDERED: Morphine 2 MG/ML SYRINGE IV PRN (13:42)
[2022-01-31] MEDS ORDERED: Lactulose 30 ml UDC PO PRN (13:42)
[2022-01-31] MEDS ORDERED: Magnesium Hydroxide LIQ 30 ML UDC PO PRN (13:42)
[2022-01-31] MEDS ORDERED: Ondansetron ODT 4 mg TAB 4 MG TAB PO PRN (13:42)
[2022-01-31] MEDS ORDERED: Acetaminophen IV 1 GM/100ML 1,000 MG/100 ML BAG IV ONE (13:49)
[2022-01-31] MEDS ORDERED: Dextrose 50% Syringe 50 ml 25 GM/50 ML SYRINGE IV PUSH PRN (15:03)
[2022-01-31] MEDS: Lactated Ringers 1000 ml BAG 1,000 ML IV SCH (16:24)
[2022-01-31] MEDS: Magnesium Hydroxide LIQ 30 ML UDC PO SCH (20:54)
[2022-01-31] MEDS: ceFAZolin 1 GM ADVAN 1 GM in NS 0.9% 50 ML 50 ML IVPB SCH (20:55)
[2022-02-01] MEDS: Lactated Ringers 1000 ml BAG 1,000 ML IV SCH (03:02)
[2022-02-01] MEDS: ceFAZolin 1 GM ADVAN 1 GM in NS 0.9% 50 ML 50 ML IVPB SCH ×2 (04:11→12:22)
[2022-02-01 06:44] LABS: Hematocrit 35 % (42-52); Hemoglobin 12.2 g/dL (14.0-18.0); Mean Platelet Volume 7.3 fL (7.4-10.4); Platelet Count 180 10^3/uL (150-450)
[2022-02-01 06:57] LABS: Calcium 8.6 mg/dL (8.6-10.3); Potassium 4.5 mmol/L (3.5-5.0)
[2022-02-01] MEDS: Magnesium Hydroxide LIQ 30 ML UDC PO SCH (08:27)
[2022-02-01] MEDS ORDERED: Vitamin THERAPEUTIC TAB PO SCH (09:00)
[2022-02-01 11:43] VITALS: BP 111/54
[2022-02-01] MEDS ORDERED: Dextrose 50% Syringe 50 ml 25 GM/50 ML SYRINGE IV PUSH PRN (12:00)
[2022-02-01] MEDS ORDERED: Insulin GLARGINE 100 un/ml 10 ml VIAL SUBCUT SCH (21:00)
== END 2022-02-01 14:15 | disposition home or self-care (01) ==
LOC: INTOOBSV 08:24 → AA 08:24 → SSU 13:42
PROVIDERS: ADMIT Orthopaedic Surgery Adult Reconstructive Orthopaedic Surgery; ATTEND Orthopaedic Surgery Adult Reconstructive Orthopaedic Surgery